=== PATIENT | male | born 1975 | race African-American/Black ===

== ENCOUNTER 2021-04-18 15:24 | Emergency (ER) | payer BC ==
[~2021-04-18] VITALS: Ht 182.9 cm; Wt 120.3 kg
[2021-04-18] MEDS ORDERED: PREDNISONE20 MG PO (16:12)
[2021-04-18] MEDS ORDERED: COLCHICINE0.6 M1 PO (16:12)
== END 2021-04-18 16:39 | disposition home or self-care (01) ==
LOC: FSED 15:30
DX: M79.675 Pain in left toe(s) (principal); M10.9 Gout, unspecified
CPT/HCPCS: 99283